=== PATIENT | female | born 1990 | race Caucasian/White ===

== ENCOUNTER 2018-08-31 08:50 | Emergency (ER) | payer MEDICAID ==
[~2018-08-31] VITALS: Wt 70.0 kg
[2018-08-31 08:52] VITALS: BP 119/56; PULSE 89; RESP 18
--- NOTE | 2018-08-31 09:44 | ERD ---
ER Documentation Chief Complaint Chief Complaint sore throat HPI 27-year-old female, previously healthy, presents to the emergency department, complaining of 3 days with worsening of sore throat, associated with headache, bilateral ear pain, subjective fever and general malaise. Otherwise, no upper respiratory symptoms, no chills, no difficulty swallowing. ROS All systems reviewed and are negative except as per history of present illness. Medications Home Meds Active Scripts Ibuprofen* (Motrin*) 400 Mg Tab, 400 MG PO Q6H PRN for PAIN AND OR ELEVATED TEMP, #20 TAB Prov:EL GREER MD 08/31/18 Penicillin V Potassium* (Penicillin V K*) 500 Mg Tab, 500 MG PO QID for 10 Days, TAB Prov:EL GREER MD 08/31/18 Allergies Allergies: Coded Allergies: No Known Allergy (Unverified , 03/31/14) PMhx/Soc Medical and Surgical Hx: pt denies Medical Hx, pt denies Surgical Hx Smoking Status: Never smoker FmHx Family History: No diabetes, No coronary disease Physical Exam Vitals Vital Signs Date Temp Pulse Resp B/P (MAP) Pulse Ox O2 O2 Flow FiO2 Time Delivery Rate 08/31/18 98.1 89 18 119/56 99 08:52 (77) Physical Exam Patient is in moderate distress due to fever, vital signs showed fever. EYES: PERRLA, EOMI, injected sclerae EARS: Canals clear, erythematous tympanic membranes THROAT: Erythematous oropharynx with bilateral exudates NECK: Supple, + tender cervical lymphadenopathy. Full ROM without pain or tenderness. HEART: RRR, no rubs, murmurs, clicks or gallops. LUNGS: Bilateral rhonchi to auscultation. ABDOMEN: Soft, non-tender without masses or hepatosplenomegaly. EXTREMITIES: No edema bilaterally. BACK: Full ROM, no deformity, normal back exam NEURO: Cranial nerves grossly intact, no motor or sensory deficit Results 24 hrs Current Medications Medications Dose Sig/Kenny Start Time Status Last (Trade) Ordered Route PRN Stop Time Admin Dose Reason Admin Ceftriaxone 1 gm ONCE ONCE 08/31/18 DC 08/31/18 Sodium IM 10:00 09:54 (Rocephin) 08/31/18 10:01 Lidocaine 5 ml ONCE ONCE 08/31/18 DC 08/31/18 (Xylocaine INFIL 10:00 09:54 1% (Mpf)) 08/31/18 10:01 Procedures/MDM Differential diagnosis include but not limited to: Tonsillar/pharyngeal infection bacterial/viral/fungal, parotitis, allergies, GERD. Less likely peritonsillar abscess, retropharyngeal abscess. No signs of upper respiratory obstruction Physical examination and clinical presentation consistent most likely with acute suppurative tonsillitis. Centor criteria 4/5. During the ED course the patient remained stable. Clinical impression discussed with the patient who agrees with management. The patient is stable to be treated outpatient and will be discharged home with a Rx for antibiotic and ibuprofen. Some side effects of prescribed medications (headache, rash, nausea, vomiting, diarrhea, drowsiness, habituation, bleeding, hypertension, interactions with other medications) were reviewed. The patient was instructed to follow up with the primary care provider in the next 48h. If symptoms persist, worsen or new symptoms develop, then patient should return to the ED immediately. Disclaimer: Inadvertent spelling and grammatical errors are likely due to EHR/dictation software use and do not reflect on the overall quality of patient care. Also, please note that the electronic time recorded on this note does not necessarily reflect the actual time of the patient encounter. Departure Diagnosis: Primary Impression: Acute suppurative tonsillitis Condition: Stable Additional Instructions: Muchas favio por [facility] para woodard servicio. Esperamos que en woodard visita a la julia de emergencia woodard problema medico haya sido solucionado y que se sienta mucho mejor. Para estar seguros que woodard mejoria sigue en proceso, le pedimos el favor de hacer igor trace de seguimiento medico con [place] doctor primario en los proximos 2-4 cao. Lleve con usted estos documentos y las medicinas recetadas. Si rosemary sintomas empeoran, NO SE ESPERE, por favor regrese a julia de emergencia INMEDIATAMENTE. En darci que usted no tenga un mdico de atencin primaria: Llame al mdico o clnica comunitaria de referencia que aparece abajo liyah las horas de consultorio para hacer igor trace para que le vean. CLINICAS: [facility] [phone] [facility] [phone] [facility] [phone] [facility] [phone] [place] [id number] [phone] [facility]. [phone] EL NARAYAN MD August 31, 2018 09:44
[2018-08-31] MEDS ORDERED: IBUP-1561 PO (09:45)
[2018-08-31] MEDS ORDERED: PENI500T PO (09:45)
[2018-08-31] MEDS ORDERED: CEFTRIAXONE 1 GM INJ IM ONE (10:00)
[2018-08-31] MEDS ORDERED: LIDOCAINE 1% (MPF) 5 ML VIAL INFIL ONE (10:00)
== END 2018-08-31 10:17 | disposition home or self-care (01) ==
LOC: FTE 08:50
DX: J03.90 Acute tonsillitis, unspecified (principal)
CPT/HCPCS: 96372; J0696; Z7502; Z7610